=== PATIENT | male | born 1985 | race Caucasian/White ===

== ENCOUNTER → 2022-03-07 | Outpatient (CLI) | payer OTHER ==
[2022-03-07 13:44] VITALS: BP 133/91; PULSE 70; RESP 18; TEMP 97.9
--- NOTE | 2022-03-07 14:23 | P.GSHP ---
History of Present Illness H&P Date: 03/07/22 Chief Complaint: mass left breast Sean is a 36 year old male with a complaint of a painful mass in his left breast. He had a left breast ultrasound and bilateral mammogram done on 01-21-22. Findings were consistent with left breast gynecomastia. The area is 2 by 1.7 cm in size. It had been been present for several months. It has not changed in size, it is painful with palpation. It is not complaining of any lumps in the right breast. He is not complaining of any nipple discharge or skin changes. She has never had anything like this in the past. He has had some recent changes in his medications. He does not smoke marijuana. He has not noted any testicular lumps masses or nodules. Caffeine: three 16 redbulls/day, also drinks multiple cokes/day chocolate: occasional nicotine: stopped 3 years ago, used to smoke 2 PPD since 9 years old Family History: paternal grandfather: lung cancer paternal cousin: leukemia maternal great grandmother: breast cancer Surgical History: gallbladder appy hernia Medical History: groin hernias Social History: nicotine: As above Alcohol: Every other week 45 liquor drinks Marijuana: Negative Drugs:none - Constitutional Constitutional: Denies chills, Denies fever - EENT Eyes: denies blurred vision, denies pain Ears: bilateral: tinnitus, deny: decreased hearing Ears, nose, mouth and throat: Denies headache, Denies sore throat - Breasts Breasts: bilateral: as per HPI - Cardiovascular Cardiovascular: Reports dyspnea on exertion - Respiratory Respiratory: Denies cough, Denies 7 - Gastrointestinal Gastrointestinal: Reports constipation, Reports diarrhea, Denies abdominal pain, Denies nausea, Denies vomiting - Genitourinary (Male) Genitourinary: Reports hematuria, Reports kidney stones, Denies dysuria - Musculoskeletal Musculoskeletal: Reports myalgias - Integumentary Integumentary: Denies pruritus, Denies rash - Neurological Neurological: Reports numbness, Denies weakness - Psychiatric Psychiatric: Reports anxiety, Denies depression - Endocrine Endocrine: Reports fatigue, Reports weight change - Hematologic/Lymphatic Comment: occasional blood in stool/ has not had a colonoscopy - Allergic/Immunologic Allergic/Immunologic: Reports as per HPI Past Medical History Past Medical History: GERD/Reflux, Hyperlipidemia, Hypertension History of Any Multi-Drug Resistant Organisms: None Reported Past Surgical History: Appendectomy, Cholecystectomy, Hernia Repair Additional Past Surgical History / Comment(s): HERNIA X 2. Past Anesthesia/Blood Transfusion Reactions: No Reported Reaction Past Psychological History: ADD/ADHD Smoking Status: Former smoker Past Alcohol Use History: Rare Additional Past Alcohol Use History / Comment(s): SMOKED FOR ABOUT 17 YRS, SMOKES 1-1.5 PPD. Past Drug Use History: None Reported Medications and Allergies Home Medications Medication Instructions Recorded Confirmed Type Dextroamphetamine/Amphetamine 30 mg PO BID 05/17/18 03/07/22 History [Adderall] Famotidine [Pepcid] 20 mg PO HS 05/17/18 03/07/22 History Fenofibrate Unknown Dose 1 tab PO QAM 05/17/18 03/07/22 History Metoprolol Succinate (ER) [Toprol 25 mg PO QAM 05/17/18 03/07/22 History XL] Allergies Allergy/AdvReac Type Severity Reaction Status Date / Time Penicillins Allergy Unknown Verified 03/07/22 13:37 Childhood Surgical - Exam Vital Signs Temp Pulse Resp BP Pulse Ox 97.9 F 70 18 133/91 98 03/07/22 13:39 03/07/22 13:39 03/07/22 13:39 03/07/22 13:39 03/07/22 13:39 - General no distress - Eyes normal ocular movement - Neck trachea midline - Respiratory normal respiratory effort, clear to auscultation - Cardiovascular Rhythm: regular Heart Sounds: normal: S1, S2 - Abdomen Abdomen: soft, non tender, no guarding, no rigid, no rebound - Integumentary normal turgor - Neurologic no disoriented, no combative - Musculoskeletal normal gait - Psychiatric oriented to time, oriented to person, oriented to place, speech is normal, memory intact Breast Exam: Inspection: No skin lesions of concern Palpation: Right breast: Multi-positional exam no abnormal lumps masses or nodules of concern Right axilla: No adenopathy of concern Left breast: Increased nodularity in the post nipple areolar area approximately 3 cm in size, tender to palpation, no other lumps masses or nodules of concern Left axilla: No adenopathy of concern Testicular exam: No lumps in right or left testicle Results Ultrasound results and mammogram results reviewed from [id number] Assessment and Plan Assessment: Impression: Mass left breast behind nipple areolar complex Radiographic left breast mammogram and ultrasound consistent with gynecomastia Family history of cancer Plan: Ultrasound-guided needle biopsy left breast mass Follow-up after biopsy obtain medication list CC: Floresita Jiang 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
== END ==
LOC: WWCWWP 13:13
PROVIDERS: ATTEND Surgery
DX: C50.022 Malignant neoplasm of nipple and areola, left male breast (principal); K21.9 Gastro-esophageal reflux disease without esophagitis; E78.5 Hyperlipidemia, unspecified; I10 Essential (primary) hypertension; Z79.899 Other long term (current) drug therapy; Z88.0 Allergy status to penicillin; F17.200 Nicotine dependence, unspecified, uncomplicated

== ENCOUNTER → 2022-03-26 | Day surgery (SDC) | payer OTHER ==
--- NOTE | 2022-03-26 14:05 | USB ---
Findings: Redemonstration of flame-shaped left nipple retroareolar hypoechoic density consistent with gynecomastia. Asymmetric left gynecomastia is benign and therefore procedure was not performed. Discussed findings with the patient and advised clinical management with follow-up with ordering physician if there is clinical changes. IMPRESSION: BI-RADS 2-clinical management for asymmetric left gynecomastia. Management: Clinical Management of the left breast. Electronically signed and approved by: Dwaine Mckenzie D.O.
== END ==
LOC: RADUSWWP 10:16
PROVIDERS: ATTEND Surgery
DX: Z53.9 Procedure and treatment not carried out, unspecified reason (principal); N62 Hypertrophy of breast; N64.89 Other specified disorders of breast; R92.8 Other abnormal and inconclusive findings on diagnostic imaging of breast